=== PATIENT | male | born 1995 | race Caucasian/White ===

== ENCOUNTER 2020-01-17 05:11 | Emergency (ER) | payer MEDICAID ==
[~2020-01-17] VITALS: Ht 185.4 cm; Wt 132.7 kg
[2020-01-17 05:14] VITALS: BP 149/98
== END 2020-01-17 06:31 | disposition home or self-care (01) ==
LOC: ED 06:00
DX: J06.9 Acute upper respiratory infection, unspecified (principal); R09.3 Abnormal sputum; I10 Essential (primary) hypertension; E78.00 Pure hypercholesterolemia, unspecified
CPT/HCPCS: 99282

== ENCOUNTER 2020-01-29 13:57 | Emergency (ER) | payer MEDICAID ==
[~2020-01-29] VITALS: Ht 185.4 cm; Wt 132.6 kg
--- NOTE | 2020-01-29 14:21 | NUR ---
PT A&OX4, RESP EVEN & UNLABORED, OCCASIONAL COUGH NOTED, SPEECH CLEAR. STATES WHEN HE WAKES W/ POOL OF MUCUS IN THROAT, COVERS HIS WINDPIPE WHEN HE SITS UP, CAN'T SEEM TO GET RID OF IT. SX X 3 WEEKS. DENIES RESP ILLNESS PRIOR TO SX STARTING. DENIES SINUS PRESSURE. WAS SEEN AT [facility]RGENT [facility]ARE, RX: ANTIBIOTIC TAKEN W/OUT RELIEF. WAS SEEN AT [facility] LAST WEEK, RX: [id number] - NOT TAKEN.
[2020-01-29] MEDS ORDERED: LOSA50TA14 PO (14:26)
[2020-01-29] MEDS ORDERED: ATOR20TA86 PO (14:26)
[2020-01-29] MEDS ORDERED: AMOX1TAB12 PO (14:27)
--- NOTE | 2020-01-29 15:55 | NUR ---
NEBULIZER TX STARTED W/ SALINE PER VO DR KEMP.
[2020-01-29 15:56] VITALS: BP 131/68
== END 2020-01-29 16:34 | disposition home or self-care (01) ==
LOC: ED 16:32
DX: R09.3 Abnormal sputum (principal); R09.81 Nasal congestion; J02.9 Acute pharyngitis, unspecified; I10 Essential (primary) hypertension
CPT/HCPCS: 99281